=== PATIENT | female | born 1990 | race African-American/Black ===

== ENCOUNTER 2016-11-07 02:30 | Inpatient (IN) | payer OTHER ==
[~2016-11-07] VITALS: Ht 170.2 cm; Wt 112.0 kg
[2016-11-07] VITALS (22 sets, daily range): BP systolic 102–137; BP diastolic 52–92
[~2016-11-07 02:30] MED LIST: CIPROFLOXACN500 MG PO; E.E.S. 400400 MG OR; LORTAB 1010 MG PO; NAPROSYN500 MG PO; NO CURRENT MEDS; NO HOME MEDS; NORCO1 TA2 PO; ONDANSETRON4 MG PO; PRE-NATAL PO; PRILOSEC OTC20 MG OR; ULTRAM50 M1 OR
[2016-11-07 04:07] LABS: ALBUMIN 3.7 g/dL (3.2-5.0); ALKALINE PHOSPHATASE 152 u/l (38-126); ANION GAP 14 (6-22 (CALC)); BILIRUBIN, TOTAL 1.2 mg/dL (0.0-1.4); BUN 6 mg/dL (7-17); BUN/CREATININE RATIO 11 (12-20 (CALC)); CALCIUM 9.3 mg/dL (8.4-10.2); CARBON DIOXIDE 23 mmol/l (22-30); CHLORIDE 105 mmol/l (95-108); CREATININE 0.5 mg/dL (0.5-1.0); GFR > 60 ML/MIN (>=60 (CALC)); GFR FOR AFR.AMER. > 60 ML/MIN (>=60 (CALC)); GLUCOSE 81 mg/dL (65-105); POTASSIUM 4.3 mmol/l (3.5-5.1); SGOT/AST 31 u/l (14-36); SGPT/ALT 35 u/l (9-52); SODIUM 137 mmol/l (137-146); TOTAL PROTEIN 7.2 g/dL (6.3-8.2)
[2016-11-07 04:36] LABS: HEMATOCRIT 36.4 % (37.0-47.0); HEMOGLOBIN 12.3 g/dl (12.0-16.0); IMMATURE GRANULOCYTES 0.4 % (0.0-1.0); MEAN CELL VOLUME 97.6 fL CALC (80.0-100.0); MEAN CORPUSCULAR HGB CONC 33.8 g/L CALC (32.0-36.0); NEUT# 6.51 thou/uL (2.00-7.15); RED BLOOD COUNT 3.73 mill/uL (4.20-5.60); RED CELL DISTRI WIDTH 14.3 % (11.5-15.5)
[2016-11-07 05:16] LABS: URINE BILIRUBIN - DIPSTICK NEGATIVE (NEGATIVE); URINE BLOOD DIPSTICK LARGE (NEGATIVE); URINE CLARITY CLEAR; URINE COLOR YELLOW; URINE GLUCOSE - DIPSTICK NEGATIVE (NEGATIVE); URINE KETONE 40 mg/dL (NEGATIVE); URINE NITRITE - DIPSTICK NEGATIVE (Negative); URINE PROTEIN - DIPSTICK 100 mg/dL (NEG-TRACE); URINE SPECIFIC GRAVITY 1.025
[2016-11-07 05:19] LABS: URINE LEUK ESTERASE LARGE (NEGATIVE)
[2016-11-07 05:25] LABS: URINE SQUAMOUS EPITHELIAL CELL RARE EPI/hpf (0-FEW); URINE WBC 50-100 WBC/hpf (0-5)
[2016-11-07 05:26] LABS: URINE TRICHOMONAS MODERATE hpf
[2016-11-07 05:27] LABS: URINE BACTERIA FEW hpf
[2016-11-07 05:35] LABS: BARBITURATES NEGATIVE (NEGATIVE); COCAINE NEGATIVE (NEGATIVE); METHADONE NEGATIVE (NEGATIVE); OXCYCODONE NEGATIVE (NEGATIVE); TETRAHYDROCANNABIONOL NEGATIVE (NEGATIVE); TRICYLIC ANTIDEPRESSANTS NEGATIVE (NEGATIVE)
[2016-11-08 00:21] VITALS: BP 106/58
[2016-11-08 04:26] LABS: HEMATOCRIT 28.7 % (37.0-47.0); HEMOGLOBIN 9.6 g/dl (12.0-16.0); IMMATURE GRANULOCYTES 0.5 % (0.0-1.0); MEAN CELL VOLUME 98.6 fL CALC (80.0-100.0); MEAN CORPUSCULAR HGB CONC 33.4 g/L CALC (32.0-36.0); NEUT# 7.45 thou/uL (2.00-7.15); RED BLOOD COUNT 2.91 mill/uL (4.20-5.60); RED CELL DISTRI WIDTH 14.3 % (11.5-15.5)
[2016-11-08 07:00] VITALS: BP 110/59
[2016-11-08 16:26] VITALS: BP 118/65
[2016-11-09 05:54] VITALS: BP 95/54
[2016-11-09] MEDS ORDERED: IBUPROFEN600 MG PO (09:20)
[2016-11-09] MEDS ORDERED: FERR SULFATE325 MG PO (09:22)
[2016-11-09 13:10] VITALS: BP 98/55
== END 2016-11-09 16:05 | disposition home or self-care (01) | DRG 774 ==
LOC: OBOP 02:30 → EDSTATUS 02:37 → OB 03:27 → OBOP 03:27 → OB 03:29
PROC: 10D07Z6 Extraction of Products of Conception, Vacuum, Via Natural or Artificial Opening (ICD-10-PCS; principal; 2016-11-07)
DX: O48.0 Post-term pregnancy (principal); O72.1 Other immediate postpartum hemorrhage; D62 Acute posthemorrhagic anemia; O99.324 Drug use complicating childbirth; O23.43 Unspecified infection of urinary tract in pregnancy, third trimester; O99.344 Other mental disorders complicating childbirth; O99.824 Streptococcus B carrier state complicating childbirth; F12.90 Cannabis use, unspecified, uncomplicated; F14.90 Cocaine use, unspecified, uncomplicated; O77.0 Labor and delivery complicated by meconium in amniotic fluid; O76 Abnormality in fetal heart rate and rhythm complicating labor and delivery; O69.81X0 Labor and delivery complicated by cord around neck, without compression, not applicable or unspecified; A59.00 Urogenital trichomoniasis, unspecified; O90.81 Anemia of the puerperium; Z3A.41 41 weeks gestation of pregnancy; Z37.0 Single live birth
CPT/HCPCS: J2540

== ENCOUNTER 2017-08-15 17:45 | Emergency (ER) | payer OTHER ==
[~2017-08-15] VITALS: Ht 170.2 cm; Wt 90.0 kg
[~2017-08-15 17:45] MED LIST changes: +FERR SULFATE325 MG PO; +IBUPROFEN600 MG PO
[2017-08-15 18:25] VITALS: BP 135/83
[2017-08-15 18:35] LABS: HEMOGLOBIN 11.4 g/dl (12.0-16.0); IMMATURE GRANULOCYTES 0.4 % (0.0-1.0); MEAN CELL VOLUME 97.7 fL CALC (80.0-100.0); MEAN CORPUSCULAR HGB 32.8 pG CALC (26.0-32.0); MEAN CORPUSCULAR HGB CONC 33.5 g/L CALC (32.0-36.0); NEUT# 5.4 thou/uL (2.00-7.15); RED BLOOD COUNT 3.48 mill/uL (4.20-5.60); RED CELL DISTRI WIDTH 13.8 % (11.5-15.5)
[2017-08-15 18:49] LABS: ANION GAP 16 (6-22 (CALC)); BUN 7 mg/dL (7-17); BUN/CREATININE RATIO 11 (12-20 (CALC)); CARBON DIOXIDE 22 mmol/l (22-30); CHLORIDE 104 mmol/l (95-108); CREATININE 0.6 mg/dL (0.5-1.0); GFR > 60 ML/MIN (>=60 (CALC)); GFR FOR AFR.AMER. > 60 ML/MIN (>=60 (CALC)); POTASSIUM 3.7 mmol/l (3.5-5.1); SODIUM 139 mmol/l (137-146)
== END 2017-08-15 18:25 | disposition short-term general hospital (02) | DRG 395 ==
LOC: ED 17:45
PROVIDERS: Family Medicine
DX: T18.198A Other foreign object in esophagus causing other injury, initial encounter (principal); Z33.1 Pregnant state, incidental; X58.XXXA Exposure to other specified factors, initial encounter; Y92.009 Unspecified place in unspecified non-institutional (private) residence as the place of occurrence of the external cause

== ENCOUNTER 2017-10-22 10:23 | Emergency (ER) | payer OTHER ==
[~2017-10-22] VITALS: Ht 170.2 cm; Wt 80.0 kg
[2017-10-22] MEDS ORDERED: MOTRIN800 MG PO (11:17)
[2017-10-22 11:38] VITALS: BP 121/76
== END 2017-10-22 11:39 | disposition home or self-care (01) | DRG 605 ==
LOC: ED 10:23
DX: S90.31XA Contusion of right foot, initial encounter (principal); F17.210 Nicotine dependence, cigarettes, uncomplicated; O99.330 Smoking (tobacco) complicating pregnancy, unspecified trimester; Z3A.00 Weeks of gestation of pregnancy not specified; W22.09XA Striking against other stationary object, initial encounter; Y93.89 Activity, other specified; Y92.009 Unspecified place in unspecified non-institutional (private) residence as the place of occurrence of the external cause

== ENCOUNTER 2018-08-09 18:36 | Emergency (ER) | payer OTHER ==
[~2018-08-09] VITALS: Ht 170.2 cm; Wt 91.0 kg
[~2018-08-09 18:36] MED LIST changes: +MOTRIN800 MG PO
[2018-08-09 18:42] VITALS: BP 124/77
[2018-08-09 19:32] LABS: URINE BILIRUBIN - DIPSTICK NEGATIVE (NEGATIVE); URINE BLOOD DIPSTICK NEGATIVE (NEGATIVE); URINE COLOR YELLOW; URINE GLUCOSE - DIPSTICK NEGATIVE (NEGATIVE); URINE KETONE NEGATIVE (NEGATIVE); URINE NITRITE - DIPSTICK NEGATIVE (Negative); URINE PH 6.5 (4.5-8.0); URINE PROTEIN - DIPSTICK NEGATIVE (NEG-TRACE); URINE UROBILINOGEN - DIPSTICK 0.2 E.U./dL (0.2)
[2018-08-09 19:33] LABS: URINE LEUK ESTERASE SMALL (NEGATIVE)
[2018-08-09 19:34] LABS: BARBITURATES NEGATIVE (NEGATIVE); COCAINE POSITIVE (NEGATIVE); METHADONE NEGATIVE (NEGATIVE); OXCYCODONE NEGATIVE (NEGATIVE); TETRAHYDROCANNABIONOL NEGATIVE (NEGATIVE); TRICYLIC ANTIDEPRESSANTS NEGATIVE (NEGATIVE)
[2018-08-09 19:42] LABS: URINE RBC 0-2 RBC/hpf (0-5); URINE SQUAMOUS EPITHELIAL CELL FEW EPI/hpf (0-FEW)
[2018-08-09] MEDS ORDERED: CEPHALEXIN500 M1 PO (19:59)
== END 2018-08-09 20:24 | disposition left against medical advice (07) ==
LOC: ED 18:36
PROVIDERS: Emergency Medicine
DX: O23.42 Unspecified infection of urinary tract in pregnancy, second trimester (principal); O99.322 Drug use complicating pregnancy, second trimester; F19.10 Other psychoactive substance abuse, uncomplicated; O99.332 Smoking (tobacco) complicating pregnancy, second trimester; F17.210 Nicotine dependence, cigarettes, uncomplicated; Z3A.23 23 weeks gestation of pregnancy

== ENCOUNTER 2018-10-05 10:40 | Emergency (ER) | payer OTHER ==
[~2018-10-05] VITALS: Ht 170.2 cm; Wt 97.0 kg
[~2018-10-05 10:40] MED LIST changes: +CEPHALEXIN500 M1 PO
[2018-10-05] MEDS ORDERED: VOLTAREN - GENE75 MG PO (11:19)
[2018-10-05 11:30] VITALS: BP 105/62
[2018-10-05] MEDS ORDERED: TYLENOL 500MG TAB PO ×2 (11:30)
== END 2018-10-05 11:30 | disposition home or self-care (01) ==
LOC: ED 10:40
DX: S63.502A Unspecified sprain of left wrist, initial encounter (principal); W06.XXXA Fall from bed, initial encounter; Y92.003 Bedroom of unspecified non-institutional (private) residence as the place of occurrence of the external cause; Z33.1 Pregnant state, incidental